=== PATIENT | male | born 1955 | race Caucasian/White ===

== ENCOUNTER 2019-04-22 11:48 | Day surgery (SDC) | payer OTHER ==
[2019-04-22] MEDS ORDERED: SOD CHLORIDE 0.9% 1,000 ML IV (11:55)
[2019-04-22] MEDS: FENTAnyl 50 MCG/ML VIAL (13:37)
[2019-04-22] MEDS: LIDOCAINE 1% (MDV) 20 ML INJ (13:37)
[2019-04-22] MEDS: MIDAZOLAM 1 MG/ML 2 ML INJ (13:38)
== END 2019-04-22 16:05 | disposition home or self-care (01) ==
LOC: SDS 11:48
DX: D46.9 Myelodysplastic syndrome, unspecified (principal); D70.9 Neutropenia, unspecified
CPT/HCPCS: 38221; 77012; 88305; 88311; 88313